=== PATIENT | female | born 2000 | race Caucasian/White ===

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

== ENCOUNTER 2020-10-09 10:21 | Emergency (ER) | payer BC ==
[~2020-10-09] VITALS: Ht 149.9 cm; Wt 46.4 kg
[~2020-10-09 10:21] MED LIST changes: +PERCOCET 5-3251 TAB PO
[2020-10-09 10:46] VITALS: BP 107/71; Ht 149.9 cm; Wt 46.4 kg
[2020-10-09 11:25] LABS: BASOPHILS 0.1 % (0-2); EOSINOPHILS 0.6 % (0-7); HEMATOCRIT 40.2 % (36.0-48.0); HEMOGLOBIN 13.2 g/dL (12-16); IMMATURE GRANULOCYTES 0.1 % (0-5); LYMPHOCYTE ABS# 1.46 10x3/uL (1.18-3.74); LYMPHOCYTES 21.2 % (15-50); MCH 26.7 pg (26.0-34.0); MCHC 32.8 g/dL (31.0-37.0); MCV 81.2 fL (80.0-100.0); MEAN PLATELET VOLUME 11.4 fL (7.4-10.4); MONOCYTES 4.5 % (2-11); NEUTROPHIL ABS# 5.06 10x3/uL (1.56-6.13); NEUTROPHILS 73.5 % (40-80); RBC 4.95 10x6/uL (4.00-5.40); RDW 13.6 % (11.5-14.5); WBC 6.9 10x3/uL (4.8-10.8)
[2020-10-09 11:33] LABS: CALC OSMOLALITY 269 mosm/kg (275-300); CALCIUM 9.1 mg/dL (8.5-10.1); CARBON DIOXIDE 25.7 mmol/L (21.0-32.0); CHLORIDE - SERUM 99 mmol/L (98-107); CREATININE - SERUM 0.8 mg/dL (0.6-1.3); GLUCOSE 86 mg/dL (74-106); POTASSIUM - SERUM 3.7 mmol/L (3.5-5.1); SODIUM 136 mmol/L (136-145); UREA NITROGEN 10 mg/dL (7-18); eGFR NON AFRICAN AMERICAN > 90 mL/min (90-120)
[2020-10-09 11:39] LABS: ALBUMIN 4.5 g/dL (3.4-5.0); ALKALINE PHOSPHATASE 83 U/L (30-120); ALT (SGPT) 13 U/L (10-68); BILIRUBIN - TOTAL 0.58 mg/dL (0.2-1.3)
[2020-10-09 11:43] LABS: HCG URINE NEGATIVE (NEGATIVE)
[2020-10-09 11:50] LABS: PLATELET COUNT 181 10x3/uL (130-400)
[2020-10-09 11:53] LABS: BILIRUBIN NEGATIVE (NEGATIVE); KETONE MODERATE mg/dL (NEGATIVE); NITRITE NEGATIVE (NEGATIVE); UROBILINOGEN NORMAL mg/dL (< 2); WHITE CELLS - URINE 0-5 HPF (0-4)
[2020-10-09 11:55] LABS: BACTERIA FEW HPF (NONE SEEN)
[2020-10-09] MEDS ORDERED: MACROBID100 MG PO (12:20)
[2020-10-09] MEDS ORDERED: CEPHALEXIN500 M1 PO (12:20)
== END 2020-10-09 13:03 | disposition home or self-care (01) ==
LOC: D.ER 10:21
PROVIDERS: Family Medicine
DX: E86.0 Dehydration (principal); R42 Dizziness and giddiness; N39.0 Urinary tract infection, site not specified; R11.0 Nausea

== ENCOUNTER 2020-10-21 08:20 | Day surgery (SDC) | payer BC ==
[2020-10-18 14:51] LABS: BASOPHILS 0.4 % (0-2); EOSINOPHILS 3.1 % (0-7); HEMATOCRIT 36.4 % (36.0-48.0); IMMATURE GRANULOCYTES 0.3 % (0-5); LYMPHOCYTE ABS# 3.07 10x3/uL (1.18-3.74); LYMPHOCYTES 42.8 % (15-50); MCH 26.4 pg (26.0-34.0); MEAN PLATELET VOLUME 11.8 fL (7.4-10.4); MONOCYTES 5.4 % (2-11); NEUTROPHIL ABS# 3.45 10x3/uL (1.56-6.13); PLATELET COUNT 180 10x3/uL (130-400); RBC 4.55 10x6/uL (4.00-5.40); RDW 13.5 % (11.5-14.5); WBC 7.2 10x3/uL (4.8-10.8)
[2020-10-18 14:55] LABS: HCG URINE NEGATIVE (NEGATIVE)
[~2020-10-21] VITALS: Ht 149.9 cm; Wt 47.6 kg
[~2020-10-21 08:20] MED LIST changes: +CEPHALEXIN500 M1 PO; +MACROBID100 MG PO
[2020-10-21 10:45] VITALS: BP 111/62; Ht 149.9 cm; Wt 47.6 kg
[2020-10-21 11:16] LABS: HCG URINE NEGATIVE (NEGATIVE)
--- NOTE | 2020-10-21 17:08 | NUR ---
DISCHARGE INSTRUCTIONS GIVEN AND BOTH PT AND MOTHER VERBALIZED AN UNDERSTANDING.
--- NOTE | 2020-10-21 17:16 | NUR ---
PT STATES SHE'D LIKE TO GO HOME VSS. IV D/C'D WITH CANNULA INTACT, PRESSURE HELD AND DRSG PLACED. INTRUCTED TO TO ER IF NO VOID WITHIN 6 HOURS. DISCHARGED WITHOUT C/O
--- NOTE | 2020-10-31 05:27 | OP ---
PATIENT NAME: MARSHA BAUGH MEDICAL RECORD: [id number] :00 LOCATION:[facility] ADMISSION DATE: SURGEON: RAVI MITCHELL MD DATE OF OPERATION: 10/21/2020 PREOPERATIVE DIAGNOSES: 1. Pelvic pain. 2. Suspect endometriosis. POSTOPERATIVE DIAGNOSES: 1. Pelvic adhesive disease. 2. Adenomyosis. PROCEDURE: Operative laparoscopy and lysis of adhesions. SURGEON: Ravi Mitchell. ANESTHESIA: General endotracheal. INTRAVENOUS FLUIDS: Per anesthesia record. SPECIMENS: None. COMPLICATIONS: None. DESCRIPTION OF PROCEDURE: The patient was taken to the operating room where general anesthesia was achieved without any difficulty. The patient was then prepped and draped in normal sterile fashion in the dorsal lithotomy position in the [facility]. Bladder was drained of approximately 100 mL of straw colored urine and a sponge stick was placed into the vagina for uterine elevation. At this point, a 5-mm infraumbilical incision was made and the intraperitoneal space was entered using a 5-mm bladeless trocar. The introducer was removed and intraperitoneal placement was confirmed by the laparoscope. Dense omental adhesions were noted to the previous Pfannenstiel incision. At this point, attention was turned to the left lower quadrant where another 5-mm incision was made and a second trocar was placed under direct visualization of the laparoscope. The Thunderbeat cautery device was then used to excise dense omental adhesions, which were present on the anterior abdominal wall. Following removal of the adhesions, survey of the abdomen and pelvis was performed. The uterus had a texture consistent with adenomyosis. Multiple areas of endometriosis were noted in the pelvic peritoneum. The patient was then desufflated and the trocars were removed. The skin was repaired with 3-0 Vicryl in an interrupted fashion. The sponge stick was removed from the vagina. The patient tolerated the procedure well and was transported to the postanesthesia recovery stable without incident. TRANSINT:[id number] Voice Confirmation ID: [id number] DOCUMENT ID: [id number] OPERATIVE REPORT [id number] MARSHA BAUGH RAVI MITCHELL MD at 0527 CC: [id number] DICTATION DATE: 10/28/20 1450 REGISTERED PRIVATE DUTY NURSE: 10/28/20 1520 [facility] 10/21/20 [facility] [address] [place] [address]
== END 2020-10-21 17:17 | disposition home or self-care (01) ==
LOC: D.OPS 08:20
PROVIDERS: ATTEND Obstetrics & Gynecology
DX: R10.2 Pelvic and perineal pain (principal); N80.0 Endometriosis of uterus; F32.9 Major depressive disorder, single episode, unspecified